=== PATIENT | female | born 1995 | race Caucasian/White ===

== ENCOUNTER → 2019-08-28 | Outpatient (CLI) | payer BC ==
[~2019-08-28] MED LIST: AMOXIL500 MG PO; ANTIVERT/2525 M1 PO; Bactrim 200 MG/30 ML PO; CEPHALEXIN500 M1 PO; FLAGYL500 MG PO; KEFLEX500 M1 PO; MOTRIN800 MG PO; NAPROSYN500 MG PO; PREDNISONE10 MG PO; SEPTDS PO; TYLENOL W/CODE480 ML PO; ZOFRAN4 MG PO; Zofran4 MG PO
== END | disposition home or self-care (01) ==
LOC: LAB 14:12
DX: R10.2 Pelvic and perineal pain (principal)

== ENCOUNTER → 2019-09-04 | Outpatient (CLI) | payer BC | END | disposition home or self-care (01) | LOC: LAB 10:55 | DX: R10.2 Pelvic and perineal pain (principal) ==

== ENCOUNTER 2023-06-05 23:38 | Emergency (ER) | payer OTHER ==
[~2023-06-05] VITALS: Ht 165.1 cm; Wt 110.7 kg
[2023-06-05 23:55] VITALS: BP 144/68
[2023-06-06 00:07] LABS: BASO # 0.1 10*3/uL (0.0-0.1); BASO % 0.4 % (0.0-1.0); EOS # 0.3 10*3/uL (0.0-0.4); EOS % 1.7 % (1.0-4.0); HEMATOCRIT 43.4 % (37.0-47.0); LYMPH % 30.7 % (27.0-41.0); MEAN CELL VOLUME 91.4 fl (81.0-99.0); MEAN CORPUSCULAR HGB 31.6 pg (27.0-31.0); MEAN CORPUSCULAR HGB CONC 34.6 g/dl (33.0-37.0); MEAN PLATELET VOLUME 9.1 fl (9.6-12.3); MONO # 0.7 10*3/uL (0.1-1.0); MONO % 4.3 % (3.0-9.0); NEUT # 10.1 10*3/uL (2.3-7.9); NEUT % 62.6 % (47.0-73.0); PLATELET COUNT AUTOMATED 419 10*3/uL (130-400); RED BLOOD COUNT 4.75 10*6/uL (4.10-5.10); RED CELL DISTRI WIDTH 12.4 % (0-14.5); WHITE BLOOD COUNT 16.1 10*3/uL (4.8-10.8)
[2023-06-06 00:31] LABS: ALKALINE PHOSPHATASE 97 U/L (46-116); BUN 12 mg/dl (9-23); CHLORIDE 107 mmol/L (98-107); LIPASE 43 U/L (12-53); POTASSIUM 3.8 mmol/L (3.4-5.1); SGPT/ALT 20 U/L (10-49); TOTAL PROTEIN 6.9 gm/dL (6.0-8.0)
[2023-06-06] MEDS ORDERED: METRONIDAZOLE500 M1 PO (09:02)
[2023-06-06] MEDS ORDERED: CIPRO500 MG PO (09:02)
== END 2023-06-06 09:44 | disposition home or self-care (01) ==
LOC: ED 23:38
PROVIDERS: Internal Medicine
DX: K80.50 Calculus of bile duct without cholangitis or cholecystitis without obstruction (principal); R11.0 Nausea; Z98.890 Other specified postprocedural states

== ENCOUNTER 2023-10-04 17:16 | Emergency (ER) | payer OTHER, MEDICAID ==
[~2023-10-04] VITALS: Ht 162.5 cm; Wt 108.9 kg
[~2023-10-04 17:16] MED LIST changes: +CIPRO500 MG PO; +METRONIDAZOLE500 M1 PO
[2023-10-04 17:41] VITALS: BP 125/76
[2023-10-04] MEDS ORDERED: Ketorolac Tromethamine 30 MG/ML VIAL IM ONE (20:00)
[2023-10-04 20:15] LABS: BILIRUBIN Negative (Negative); BLOOD Negative (Negative); CLARITY Clear (Clear); COLOR Yellow (Yellow); GLUCOSE Negative (Negative); KETONE Negative (Negative); LEUKO ESTERASE 1+ (Negative); NITRITE Negative (Negative); PH 5.5 (4.5-8.0); UROBILINOGEN 0.2 E.U./dl (0.0-1.0)
[2023-10-04 20:15] LABS: BASO % 0.3 % (0.0-1.0); EOS # 0.2 10*3/uL (0.0-0.4); EOS % 1.3 % (1.0-4.0); HEMATOCRIT 46.6 % (37.0-47.0); LYMPH # 2.5 10*3/uL (1.3-4.4); LYMPH % 21.1 % (27.0-41.0); MEAN CELL VOLUME 93.4 fl (81.0-99.0); MEAN CORPUSCULAR HGB 30.3 pg (27.0-31.0); MEAN CORPUSCULAR HGB CONC 32.4 g/dl (33.0-37.0); MEAN PLATELET VOLUME 9.3 fl (9.6-12.3); MONO # 0.6 10*3/uL (0.1-1.0); NEUT # 8.5 10*3/uL (2.3-7.9); NEUT % 71.9 % (47.0-73.0); PLATELET COUNT AUTOMATED 289 10*3/uL (130-400); RED BLOOD COUNT 4.99 10*6/uL (4.10-5.10); RED CELL DISTRI WIDTH 12.2 % (0-14.5); WHITE BLOOD COUNT 11.9 10*3/uL (4.8-10.8)
[2023-10-04 20:25] LABS: BACTERIA 1+; RBC 0-2 rbc/hpf (0-2); WBC 31-40 wbc/hpf (0-5)
[2023-10-04 20:34] LABS: ALKALINE PHOSPHATASE 103 U/L (46-116); BUN 9 mg/dl (9-23); CHLORIDE 103 mmol/L (98-107); POTASSIUM 3.6 mmol/L (3.4-5.1); SGPT/ALT 24 U/L (5-49); TOTAL PROTEIN 7.3 gm/dL (6.0-8.0)
[2023-10-04] MEDS ORDERED: IBUPROFEN 800 MG TAB PO ONE (21:00)
[2023-10-04] MEDS ORDERED: SEPTDS PO (21:36)
[2023-10-04] MEDS ORDERED: Sulfamethoxazole/Trimethopri 1 TAB TAB PO ONE (21:40)
== END 2023-10-04 21:53 | disposition home or self-care (01) ==
LOC: ED 17:16
PROVIDERS: Physician Assistant Medical
DX: N39.0 Urinary tract infection, site not specified (principal); R42 Dizziness and giddiness; Z98.890 Other specified postprocedural states